=== PATIENT | female | born 1965 | race Caucasian/White ===

== ENCOUNTER 2018-02-03 23:14 | Inpatient (IN) | payer BC, OTHER ==
[2018-02-03 23:15] VITALS: BMI 24.7
[2018-02-03] MEDS ORDERED: Aspirin 325 mg EC Tablets PO STA (23:37)
--- NOTE | 2018-02-03 23:37 | C.PDOC ---
History Of Present Illness Pt presents with sudden onset of chest pain. Initially she had some abdominal pain, which subsided, then developed left sided chest pain. Speaking in complete sentences. No f/c/n/v. tolerating po., Pain is non radiating Time Seen by Provider: 02/03/18 23:36 Chief Complaint (Nursing): Chest Pain History Per: Patient History/Exam Limitations: no limitations Onset/Duration Of Symptoms: Hrs Current Symptoms Are (Timing): Better Context: Other Severity: Moderate Pain Scale Rating Of: 5 Quality: Aching, Tightness, Pressure Associated Symptoms: denies: Nausea Modifying Factors: None Alleviating Factors: None Recent travel outside of the [place]: No Additional History Per: Patient Past Medical History Reviewed: Historical Data, Nursing Documentation, Vital Signs Vital Signs: Last Vital Signs Temp 98.4 F 02/03/18 23:26 Pulse 76 02/04/18 00:05 Resp 16 02/04/18 00:05 BP 144/82 02/04/18 00:05 Pulse Ox 98 02/04/18 01:02 - Medical History PMH: HTN, Migraine Denies: Depression, Chronic Kidney Disease Surgical History: Appendectomy, Tonsillectomy - [facility] CONTRAST PHLEBOGRAM NEC (01/07/12) INJECT/INFUSE NEC (08/02/13) Family History: States: No Known Family Hx - Social History Hx Tobacco Use: No Hx Alcohol Use: No Hx Substance Use: No - Immunization History Hx Tetanus Toxoid Vaccination: No Hx Influenza Vaccination: Yes Hx Pneumococcal Vaccination: No Review Of Systems Constitutional: Negative for: Fever, Chills Eyes: Negative for: Vision Change ENT: Negative for: Throat Pain Cardiovascular: Positive for: Chest Pain Respiratory: Negative for: Shortness of Breath Gastrointestinal: Negative for: Nausea, Vomiting, Abdominal Pain Genitourinary: Negative for: Dysuria Musculoskeletal: Negative for: Back Pain Skin: Negative for: Rash Neurological: Negative for: Weakness Psych: Negative for: Anxiety Physical Exam - Physical Exam Appears: Non-toxic Skin: Warm, Dry Head: Normacephalic Eye(s): bilateral: Normal Inspection Oral Mucosa: Moist Neck: Trachea Midline, Supple Chest: Symmetrical Cardiovascular: Rhythm Regular Respiratory: No Rales, No Rhonchi, No Wheezing Gastrointestinal/Abdominal: Soft, No Tenderness, No Distention Back: Normal Inspection Extremity: Normal ROM Extremity: Bilateral: Atraumatic Pulses: Left Dorsalis Pedis: Normal, Right Dorsalis Pedis: Normal Neurological/Psych: Oriented x3, Normal Speech, Normal Cognition Gait: Steady ED Course And Treatment - Laboratory Results Result Diagrams: 02/03/18 23:53 02/03/18 23:53 ECG: Interpreted By Me, Viewed By Me ECG Rhythm: Sinus Rhythm (76), Nonspecific Changes O2 Sat by Pulse Oximetry: 98 Pulse Ox Interpretation: Normal - Radiology CXR: Interpreted by Me, Viewed By Me CXR Interpretation: No: Infiltrates, Fracture, Pnemothorax Progress Note: 12:55AM pt has chest pain again. 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 started midepigastric and radiating into her chest, described as pressure, not burning, repeat ekg. 1:04 AM nsr 81 bpm, rbbb, nsstt changes, unchanged from previous Disposition Discussed With .: Abiola Christian Comment: Accepted the pt on his service and took over the care at 1AM Doctor Will See Patient In The: Hospital Counseled Patient/Family Regarding: Studies Performed, Diagnosis - Disposition Referrals: Abiola Christian MD [Primary Care Provider] - Disposition: HOSPITALIZED Disposition Time: 01:02 Condition: FAIR Forms: [facility] ([place]icaraguan) - POA Present On Arrival: None - Clinical Impression Clinical Impression: Chest pain Decision To Admit - Pt Status Changed To: Hospital Disposition Of: Inpatient - Admit Certification Admit to Inpatient:: After my assessment, the patient will require hospitalization for at least two midnights. This is because of the severity of symptoms shown, intensity of services needed, and/or the medical risk in this patient being treated as an outpatient. - InPatient: Physician Admission Certification: I certify that this patient requires 2 or more midnights of care for the following reason:: After my assessment, the patient will require hospitalization for at least two midnights. This is because of the severity of symptoms shown, intensity of services needed, and/or the medical risk in this patient being treated as an outpatient. - . Bed Request Type: Telemetry Admitting Physician: Abiola Christian Patient Diagnosis: Chest pain
[2018-02-03 23:58] LABS: BASO # 0.1 K/uL (0.0-0.2); BASO % 1.7 % (0.0-2.0); EOS # 0.1 K/uL (0.0-0.7); EOS % 1.1 % (0.0-4.0); HEMOGLOBIN 11.7 g/dL (11.0-16.0); LYMPH # 3.5 K/uL (1.0-4.3); LYMPH % 44.5 % (20.0-40.0); MEAN CELL VOLUME 95.5 fL (81.0-99.0); MEAN CORPUSCULAR HGB CONC 33.5 g/dL (33.0-37.0); MONO # 1.1 K/uL (0.0-0.8); MONO % 13.4 % (0.0-10.0); NEUT # 3.1 K/uL (1.8-7.0); NEUT % 39.3 % (50.0-75.0); NRBC % 0.1 % (0.0-2.0); RBC 3.66 Mil/uL (3.80-5.20); RED CELL DISTRIBUTION WIDTH 14.2 % (11.5-14.5); WHITE BLOOD COUNT 7.8 K/uL (4.8-10.8)
[2018-02-04 00:11] LABS: D DIMER < 200 ng/mlDDU (0-243); INR 0.9; PARTIAL THROMBOPLASTIN TIME 26 SECONDS (21-34); PROTHROMBIN TIME 10.2 SECONDS (9.7-12.2)
[2018-02-04 00:14] LABS: ALT/SGPT 36 U/L (9-52); AST/SGOT 43 U/L (14-36); BLOOD UREA NITROGEN 10 mg/dL (7-17); CALCIUM 8.9 mg/dl (8.6-10.4); GFR AFRICAN-AMERICAN > 60; GFR NON-AFRICAN AMERICAN > 60
[2018-02-04] MEDS ORDERED: Morphine 4 MG/ML VIAL ONE (01:10)
[2018-02-04 02:37] LABS: SQUAMOUS EPITHIAL < 1 /hpf (0-5); URINE BILIRUBIN NEGATIVE (NEGATIVE); URINE BLOOD NEGATIVE (NEGATIVE); URINE CLARITY Clear (Clear); URINE COLOR Yellow (YELLOW); URINE GLUCOSE (UA) NORMAL (Normal); URINE LEUKOCYTE ESTERASE NEG Leu/uL (Negative); URINE PROTEIN NEGATIVE (NEGATIVE); URINE UROBILINOGEN NORMAL mg/dL (0.2-1.0)
--- NOTE | 2018-02-04 06:49 | RAD ---
Chest x-ray single frontal view History: Chest pain. Comparison: 09/24/2012 Findings: Mild venous congestion. Right hilar prominence. Surgical clip projects over the lateral right adan thorax. Calcification at the aortic knob. Degenerative changes in the spine. Impression: Mild venous congestion. Right hilar prominence. Surgical clip projects over the lateral right adan thorax. Calcification at the aortic knob.
[2018-02-04 08:15] LABS: CK-MB 0.46 ng/mL (0.0-3.38)
--- NOTE | 2018-02-04 09:39 | CP.PCM.PN ---
Subjective - Date & Time of Evaluation Date of Evaluation: 02/04/18 Time of Evaluation: 10:10 - Subjective Subjective: PGY 2 Medicine Progress Note- Dr. Christian's service 52 year old female with past medical history significant for Lupus, HTN, IGT, Herniated disks, thoracic outlet syndrome and migraines presents with complaints of chest pain which started last night. Patient states that she was sitting at rest when the symptoms began. At the time, she told her , who decided to bring her to the ER. Patient states that the symptoms resolved after being in the ER approximately 40 minutes. At the moment, patient complains of persistent headaches. Patient denied nausea , vomiting, changes in bowel movements at this time. PMHx- as stated above PSHx: Thoracic outlet surgery-removal of first rib on right, lymph node resection, splenectomy, appendectomy, section, tubal ligation, umbilical hernia repair, breast reduction Family Hx: Father, nephew, and 1 more unknown family member with Brain Aneurysms Social: Denies tobacco, alcohol or drug use. Meds- Fioricet, Tizanidine, Gabapentin, Vicodin PRN, Losartan Allergies: NKDA Objective - Vital Signs/Intake and Output Vital Signs (last 24 hours): Temp Pulse Resp BP Pulse Ox 98 F 66 20 118/70 97 02/04/18 08:28 02/04/18 08:28 02/04/18 08:28 02/04/18 08:28 02/04/18 08:28 - Labs Labs: 02/03/18 23:53 02/03/18 23:53 PT 10.2 SECONDS (9.7-12.2) 02/03/18 23:53 INR 0.9 02/03/18 23:53 APTT 26 SECONDS (21-34) 02/03/18 23:53 - Constitutional Appears: Non-toxic, No Acute Distress - Head Exam Head Exam: ATRAUMATIC, NORMAL INSPECTION, NORMOCEPHALIC - Eye Exam Eye Exam: EOMI, Normal appearance, PERRL Pupil Exam: NORMAL ACCOMODATION, PERRL - ENT Exam ENT Exam: Mucous Membranes Moist - Neck Exam Neck Exam: Full ROM - Respiratory Exam Respiratory Exam: NORMAL BREATHING PATTERN. absent: Wheezes - Cardiovascular Exam Cardiovascular Exam: REGULAR RHYTHM, +S1, +S2 - GI/Abdominal Exam GI & Abdominal Exam: Soft, Normal Bowel Sounds - Extremities Exam Extremities Exam: Full ROM, Normal Capillary Refill, Normal Inspection. absent : Pedal Edema, Tenderness - Back Exam Back Exam: Full ROM - Neurological Exam Neurological Exam: Alert, Awake, Oriented x3 - Psychiatric Exam Psychiatric exam: Normal Affect, Normal Mood - Skin Skin Exam: Dry, Normal Color, Warm Assessment and Plan (1) Chest pain Assessment & Plan: APRIL x3 negative Echo from 2017 shows EF of 55%. Trace to mild tricuspid regurgitation. EKG NSR with stable HR F/U Repeat Echo F/U Hgb A 1c, Lipid Panel and Thyroid studies Eyeglass Frames Inspector, Dr. Vaca consulted- F/U results Status: Acute (2) Hypertension Assessment & Plan: On Losartan 50 mg daily Started Norvasc 5 mg PO daily Status: Chronic (3) IGT (impaired glucose tolerance) Assessment & Plan: Hgb A1c is 6.2 as of April 2017 F/U Hgb a1c Status: Acute (4) Headache Assessment & Plan: Unclear Etiology Tension vs Cluster vs Migraine Patient takes Fioricet PRN Encourage fluid hydration Oxygen PRN Status: Acute (5) Prophylactic measure Assessment & Plan: SCDs Lovenox SC daily GI Prophylaxis not currently indicated. Status: Acute
[2018-02-04] MEDS ORDERED: Apap-Butalbital-Caffeine 325-50-40mg Tab PO STA (10:24)
[2018-02-04] MEDS ORDERED: Oxycodone/Acetaminophen 5/325 mg Tab ONE (14:19)
[2018-02-04] MEDS: Oxycodone/Acetaminophen 5/325 mg Tab PO PRN ×2 (14:19→21:02)
[2018-02-04 15:48] VITALS: RESP 20
[2018-02-04 16:01] LABS: CK-MB 0.45 ng/mL (0.0-3.38)
--- NOTE | 2018-02-04 21:18 | CARD ---
APPROVED REPORT EKG Measurement Heart [id number] <Conclusion> Poor data quality, interpretation may be adversely affected Normal sinus rhythm Normal ECG
[2018-02-05 01:03] VITALS: O2SAT 97
[2018-02-05] MEDS: Oxycodone/Acetaminophen 5/325 mg Tab PO PRN (05:06)
[2018-02-05 07:40] LABS: BASO # 0.1 K/uL (0.0-0.2); BASO % 1.7 % (0.0-2.0); EOS # 0.1 K/uL (0.0-0.7); EOS % 2.5 % (0.0-4.0); HEMOGLOBIN 11.8 g/dL (11.0-16.0); LYMPH # 2.7 K/uL (1.0-4.3); LYMPH % 50.2 % (20.0-40.0); MEAN CELL VOLUME 95.5 fL (81.0-99.0); MEAN CORPUSCULAR HEMOGLOBIN 32.9 pg (27.0-31.0); MEAN CORPUSCULAR HGB CONC 34.4 g/dL (33.0-37.0); MEAN PLATELET VOLUME 9.2 fL (7.2-11.7); MONO # 0.6 K/uL (0.0-0.8); MONO % 10.7 % (0.0-10.0); NEUT # 1.9 K/uL (1.8-7.0); NEUT % 34.9 % (50.0-75.0); NRBC % 0.1 % (0.0-2.0); RBC 3.6 Mil/uL (3.80-5.20); WHITE BLOOD COUNT 5.3 K/uL (4.8-10.8)
[2018-02-05 08:03] LABS: ALBUMIN 3.6 g/dL (3.5-5.0); ALT/SGPT 27 U/L (9-52); AST/SGOT 33 U/L (14-36); BLOOD UREA NITROGEN 11 mg/dL (7-17); CALCIUM 8.7 mg/dl (8.6-10.4); GFR AFRICAN-AMERICAN > 60; GFR NON-AFRICAN AMERICAN > 60; HDL CHOLESTEROL 55 mg/dL (30-70)
[2018-02-05 08:09] VITALS: TEMP 98
[2018-02-05 08:12] LABS: LDL CHOLESTEROL 65 mg/dL (0-129)
--- NOTE | 2018-02-05 09:12 | CP.PCM.CON ---
<Marquez Patiño - Last Filed: 02/05/18 14:47> History of Present Illness - History of Present Illness History of Present Illness: PGY-[address] Vaca's Cardiology Service: Patient is a 52 year old female with past medical history significant for Lupus , HTN, IGT, Orthostatic Hypotension, Herniated disks, thoracic outlet syndrome and migraines presents with complaints of chest pain which started last night. Patient states that she was sitting "watching television" when pt felt initial stomach "gas pain." After 5 mins the stomach pain went away and was replaced with "sharp/stabbing" midsternal CP that "was like being punched in the chest," which did not radiate. Severity index: 10/10 at worst. CP not worsened with position or exertion. No SOB or diaphoresis. Patient initially went to [facility] but after being told of wait-time in ED pt decided to come to [facility] ED. States that chest pain resolved after being in [facility] ED. No NTG given in ED, only Reglan. Denies fever, chills, cough, SOB, abd pain, N/V, or sick contacts. Pt admits seeing outpatient cardio Dr. Odom for syncopal workup last year. Diagnosed with orthostatic hypotension. Last stress test in 2009 for chest pain , exertional dyspnea. Results were "normal" per pt. Has images of home BP readings of 170/117, and 150/105 saved on her phone. Pt states she takes BP couple of times per day, and those readings are the "highest she has recorded." Notes recent uptrend in BP readings. Pt seen and examined at bedside. Nursing reports no acute events overnight. Patient denies chest pain, palpitations, SOB overnight. Pt for ECHO this AM. PMHx- as stated above PSHx: Thoracic outlet surgery-removal of first rib on right, lymph node resection, splenectomy, appendectomy, section, tubal ligation, umbilical hernia repair, breast reduction Family Hx: Father, nephew, and 1 more unknown family member with Brain Aneurysms Social: Denies tobacco, alcohol or drug use. Meds- Fioricet, Tizanidine, Gabapentin, Vicodin PRN, Losartan Allergies: NKDA OPDX Returned Case Inspector: DR. Odom Review of Systems - Constitutional Constitutional: absent: Chills, Fever - EENT Eyes: absent: Change in Vision - Cardiovascular Cardiovascular: absent: Chest Pain, Dyspnea - Respiratory Respiratory: absent: Cough - Gastrointestinal Gastrointestinal: absent: Abdominal Pain, Nausea, Vomiting - Genitourinary Genitourinary: absent: Dysuria - Musculoskeletal Musculoskeletal: absent: Numbness, Tingling - Neurological Neurological: absent: Tingling, Weakness Past Patient History - Infectious Disease Hx of Infectious Diseases: None - Tetanus Immunizations Tetanus Immunization: Unknown - Past Medical History & Family History Past Medical History?: Yes - Past Social History Smoking Status: Never Smoked - CARDIAC Hx Cardiac Disorders: Yes Hx Hypertension: Yes - PULMONARY Hx Respiratory Disorders: No - NEUROLOGICAL Hx Neurological Disorder: Yes Hx Migraine: Yes - HEENT Hx HEENT Problems: No - RENAL Hx Chronic Kidney Disease: No - ENDOCRINE/METABOLIC Hx Endocrine Disorders: No - HEMATOLOGICAL/ONCOLOGICAL Hx Blood Disorders: No - INTEGUMENTARY Hx Dermatological Problems: No - MUSCULOSKELETAL/RHEUMATOLOGICAL Hx Falls: Yes - GASTROINTESTINAL Hx Gastrointestinal Disorders: No - GENITOURINARY/GYNECOLOGICAL Hx Genitourinary Disorders: No - PSYCHIATRIC Hx Substance Use: No - SURGICAL HISTORY Hx Surgeries: Yes Hx Appendectomy: Yes Hx Tonsillectomy: Yes Other/Comment: rt thoracic OUTLET syndrome w/ surgery - ANESTHESIA Hx Anesthesia: Yes Hx Anesthesia Reactions: No Hx Malignant Hyperthermia: No Meds Home Medications: Home Medication List Medication Instructions Recorded Confirmed Type Acetaminophen/Butalbital/Caf 1 tab PO DAILY PRN #30 tab 02/05/18 Rx [Fioricet] Gabapentin [Neurontin] 600 mg PO TID #90 tab 02/05/18 Rx Losartan [Cozaar] 25 mg PO DAILY #30 tab 02/05/18 Rx amLODIPine [Norvasc] 5 mg PO DAILY #30 tab 02/05/18 Rx Allergies/Adverse Reactions: Allergies Allergy/AdvReac Type Severity Reaction Status Date / Time No Known Allergies Allergy Verified 02/03/18 23:25 - Medications Medications: Current Medications Acetaminophen (Tylenol 325mg Tab) 650 mg PO Q6 PRN PRN Reason: Headache Last Admin: 02/04/18 13:40 Dose: 650 mg Amlodipine Besylate (Norvasc) 5 mg PO DAILY [facility] Last Admin: 02/04/18 14:20 Dose: 5 mg Enoxaparin Sodium (Lovenox) 30 mg SC DAILY [facility] Gabapentin (Neurontin) 600 mg PO TID [facility] Last Admin: 02/04/18 18:15 Dose: 600 mg Losartan Potassium (Cozaar) 50 mg PO DAILY [facility] Last Admin: 02/04/18 13:40 Dose: 50 mg Oxycodone/Acetaminophen (Percocet 5/325 Mg Tab) 1 tab PO Q4H PRN PRN Reason: pain Stop: 02/07/18 14:12 Last Admin: 02/05/18 05:06 Dose: 1 tab Physical Exam - Constitutional Appears: Non-toxic, No Acute Distress - Head Exam Head Exam: ATRAUMATIC, NORMAL INSPECTION - Eye Exam Eye Exam: EOMI. absent: Scleral icterus Pupil Exam: PERRL - ENT Exam ENT Exam: Mucous Membranes Moist - Respiratory Exam Respiratory Exam: Clear to Auscultation Bilateral, NORMAL BREATHING PATTERN. absent: Chest Wall Tenderness, Rhonchi, Wheezes - Cardiovascular Exam Cardiovascular Exam: REGULAR RHYTHM, +S1, +S2 Additional comments: tattoos noted - GI/Abdominal Exam GI & Abdominal Exam: Normal Bowel Sounds, Soft. absent: Tenderness - Extremities Exam Extremities exam: Positive for: normal inspection. Negative for: pedal edema, tenderness - Back Exam Back exam: absent: CVA tenderness (L), CVA tenderness (R) - Neurological Exam Neurological exam: Alert, CN II-XII Intact, Oriented x3 - Psychiatric Exam Psychiatric exam: Normal Affect, Normal Mood - Skin Skin Exam: Normal Color, Warm Results - Vital Signs Recent Vital Signs: Last Vital Signs Temp 98.0 F 02/05/18 08:07 Pulse 81 02/05/18 08:07 Resp 20 02/05/18 08:07 BP 100/66 02/05/18 08:07 Pulse Ox 97 02/05/18 08:07 - Labs Result Diagrams: 02/05/18 07:27 02/05/18 07:27 Labs: Laboratory Results - last 24 hr 02/04/18 02/05/18 02/05/18 15:22 07:27 07:27 WBC 5.3 RBC 3.60 L Hgb 11.8 Hct 34.3 MCV 95.5 MCH 32.9 H MCHC 34.4 RDW 14.0 Plt Count 251 MPV 9.2 Neut % (Auto) 34.9 L Lymph % (Auto) 50.2 H Sac % (Auto) 10.7 H Eos % (Auto) 2.5 Baso % (Auto) 1.7 Neut # (Auto) 1.9 Lymph # (Auto) 2.7 Sac # (Auto) 0.6 Eos # (Auto) 0.1 Baso # (Auto) 0.1 Sodium 144 Potassium 3.9 Chloride 105 Carbon Dioxide 29 Anion Gap 14 BUN 11 Creatinine 0.6 L Est GFR ( Amer) > 60 Est GFR (Non-Af Amer) > 60 Random Glucose 95 Calcium 8.7 Phosphorus 4.3 Magnesium 2.0 Total Bilirubin 0.3 AST 33 ALT 27 Alkaline Phosphatase 77 Total Creatine Kinase 47 CK-MB (Mass) 0.45 Troponin I < 0.0120 Total Protein 7.1 Albumin 3.6 Globulin 3.6 Albumin/Globulin Ratio 1.0 Triglycerides 140 Cholesterol 169 LDL Cholesterol Direct 65 HDL Cholesterol 55 TSH 3rd Generation 1.33 Assessment & Plan - Assessment and Plan (Free Text) Plan: Chest pain Observe on tele CAD risk factors: HTN, SLE, EKG NSR, HR 74, No axis deviation, No ST/T wave changes, APRIL x3 negative CXR (02/05/18): Mild venous congestion. Right hilar prominence. Calcification of aortic knob. Degenerative changes in spine. Echo from 2017 shows EF of 55%. Trace to mild tricuspid regurgitation. - F/U Repeat Echo f/u Hgb A1c Lipid Panel: LDL 65, HDL 55, T chol 169, TG 140 Thyroid studies TSH 1.33 Hypertension Elevated on admission, but better control today Losartan 50 mg daily Norvasc 5 mg PO daily IGT (impaired glucose tolerance) Hgb A1c is 6.2 as of April 2017 F/U Hgb a1c Disposition: ECHO negative. F/u with Dr. Christian. Losartan 25 daily, Norvasc 5mg Daily. Marquez Patiño PGY2 D/w Dr. Vaca <Andreas Vaca - Last Filed: 02/05/18 15:36> Results - Vital Signs Recent Vital Signs: Last Vital Signs Temp 98.0 F 02/05/18 08:07 Pulse 94 H 02/05/18 14:22 Resp 20 02/05/18 08:07 BP 150/98 H 02/05/18 14:22 Pulse Ox 97 02/05/18 08:07 - Labs Result Diagrams: 02/05/18 07:27 02/05/18 07:27 Labs: Laboratory Results - last 24 hr 02/04/18 02/05/18 02/05/18 15:22 07:27 07:27 WBC 5.3 RBC 3.60 L Hgb 11.8 Hct 34.3 MCV 95.5 MCH 32.9 H MCHC 34.4 RDW 14.0 Plt Count 251 MPV 9.2 Neut % (Auto) 34.9 L Lymph % (Auto) 50.2 H Sac % (Auto) 10.7 H Eos % (Auto) 2.5 Baso % (Auto) 1.7 Neut # (Auto) 1.9 Lymph # (Auto) 2.7 Sac # (Auto) 0.6 Eos # (Auto) 0.1 Baso # (Auto) 0.1 Sodium 144 Potassium 3.9 Chloride 105 Carbon Dioxide 29 Anion Gap 14 BUN 11 Creatinine 0.6 L Est GFR ( Amer) > 60 Est GFR (Non-Af Amer) > 60 Random Glucose 95 Calcium 8.7 Phosphorus 4.3 Magnesium 2.0 Total Bilirubin 0.3 AST 33 ALT 27 Alkaline Phosphatase 77 Total Creatine Kinase 47 CK-MB (Mass) 0.45 Troponin I < 0.0120 Total Protein 7.1 Albumin 3.6 Globulin 3.6 Albumin/Globulin Ratio 1.0 Triglycerides 140 Cholesterol 169 LDL Cholesterol Direct 65 HDL Cholesterol 55 TSH 3rd Generation 1.33 Assessment & Plan - Assessment and Plan (Free Text) Plan: Plan of care d/w the medical director and as documented
[2018-02-05] MEDS ORDERED: Enoxaparin 30 mg Syringe SC SCH (10:00)
--- NOTE | 2018-02-05 13:58 | CP.PCM.PN ---
Subjective - Date & Time of Evaluation Date of Evaluation: 02/05/18 Time of Evaluation: 13:56 - Subjective Subjective: PT CLEARED FOR D/C PER DR. PRATT AND DR. MEDINA TODAY. I CLARIFIED BP MEDS WITH DR. PRATT, AND HE IS RECOMMENDING AMLODIPINE 5 MG PO DAILY AND LOSARTAN 25 MG PO DAILY; RX GIVEN. REFILL RX FOR HOME MEDS ALSO GIVEN. PT EDUCATED ON HOW TO TAKE BP MEDS AND ON RECORDING BP READINGS. PT TO F/U WITH DR. PRATT AND DR. MEDINA IN THEIR OFFICES WITHIN 1-2 WEEKS. NO FURTHER ORDERS. -FOLLOW UP WITH DR. MEDINA IN THE OFFICE WITHIN 1 WEEK---CALL THE OFFICE TO MAKE YOUR APPT. -FOLLOW UP WITH DR. PRATT (MAINTENANCE HELPER UTILITY ENGINEER) IN THE OFFICE WITHIN 2-3 WEEKS---CALL THE OFFICE TO MAKE YOUR APPT. -CONTINUE SAME MEDICATIONS USUAL AT HOME. -NEW MEDICATIONS/DOSAGES INCLUDE: AMLODIPINE 5 MG (1 TABLET) ONCE A DAY (START TOMORROW, Wednesday02/06/18); LOSARTAN 25 MG (1 TABLET) ONCE A DAY (START TOMORROW , Wednesday). -YOU DO NOT HAVE TO TAKE YOUR BLOOD PRESSURES PILLS TOGETHER; YOU CAN TAKE ONE IN THE MORNING AND ONE DURING THE EVENING. -MAKE SURE YOU RECORD YOUR BLOOD PRESSURE READINGS AND BRING THEM TO DR. PRATT'S OFFICE. YOUR BLOOD PRESSURE MEDICATION REGIMEN MAY CHANGE BASED ON YOUR DAILY READINGS. -IF YOU HAVE ANY FURTHER QUESTIONS OR CONCERNS, FEEL FREE TO CONTACT DR. MEDINA OR DR. PRATT'S OFFICE. Objective - Vital Signs/Intake and Output Vital Signs (last 24 hours): Temp Pulse Resp BP Pulse Ox 98.0 F 91 H 20 100/66 97 02/05/18 08:07 02/05/18 12:43 02/05/18 08:07 02/05/18 08:07 02/05/18 08:07 Intake and Output: 02/05/18 02/05/18 06:59 18:59 Intake Total 360 Balance 360 - Medications Medications: Current Medications Acetaminophen (Tylenol 325mg Tab) 650 mg PO Q6 PRN PRN Reason: Headache Last Admin: 02/04/18 13:40 Dose: 650 mg Amlodipine Besylate (Norvasc) 5 mg PO DAILY [facility] Last Admin: 02/05/18 10:31 Dose: 5 mg Enoxaparin Sodium (Lovenox) 30 mg SC DAILY [facility] Last Admin: 02/05/18 10:31 Dose: Not Given Gabapentin (Neurontin) 600 mg PO TID [facility] Last Admin: 02/05/18 10:31 Dose: 600 mg Losartan Potassium (Cozaar) 50 mg PO DAILY [facility] Last Admin: 02/05/18 10:31 Dose: 50 mg Oxycodone/Acetaminophen (Percocet 5/325 Mg Tab) 1 tab PO Q4H PRN PRN Reason: pain Stop: 02/07/18 14:12 Last Admin: 02/05/18 05:06 Dose: 1 tab - Labs Labs: 02/05/18 07:27 02/05/18 07:27 PT 10.2 SECONDS (9.7-12.2) 02/03/18 23:53 INR 0.9 02/03/18 23:53 APTT 26 SECONDS (21-34) 02/03/18 23:53
[2018-02-05 14:22] VITALS: BP 150/98; PULSE 94
--- NOTE | 2018-02-05 19:20 | CARD ---
APPROVED REPORT EXAM: Two-dimensional and M-mode echocardiogram with Doppler and color Doppler. Other Information Quality : GoodRhythm : INDICATION Chest Pain Syncope RISK FACTORS Hypertension 2D DIMENSIONS IVSd1.3 (0.7-1.1cm)Aortic Root (2D)3.4 (2.0-3.7cm) LVDd3.3 (3.9-5.9cm)PWd1.3 (0.7-1.1cm) LVDs2.4 (2.5-4.0cm)FS (%) 28.0 % LVEF (%)55.5 (>50%) Mitral Valve MV E Smltqvqy82.9cm/sMV A Vjrwpway415.4cm/sE/A ratio0.6 TDI E/Lateral E'0.0E/Medial E'0.0 Tricuspid Valve TR Peak Unprnoev633qx/sTR Peak Gr.[id number] LEFT VENTRICLE The left ventricle is normal size. There is normal left ventricular wall thickness. The left ventricular function is normal. The left ventricular ejection fraction is within the normal range. There is normal LV segmental wall motion. Transmitral Doppler flow pattern is abnormal. RIGHT VENTRICLE The right ventricle is normal size. ATRIA The left atrium size is normal. The right atrium size is normal. AORTIC VALVE The aortic valve is normal in structure. MITRAL VALVE The mitral valve is normal in structure. TRICUSPID VALVE There is moderate tricuspid regurgitation. <Conclusion> Normal LV systolic function. Diastolic dysfunction. Moderate TR. Normal chamber size.
--- NOTE | 2018-02-05 20:32 | CARD ---
APPROVED REPORT EKG Measurement Heart [id number] [place] [id number] <Conclusion> Normal sinus rhythm Normal ECG
--- NOTE | 2018-02-05 20:34 | CARD ---
APPROVED REPORT EKG Measurement Heart [id number] [place] 152P41 [id number] <Conclusion> Normal sinus rhythm Incomplete right bundle branch block Borderline ECG
--- NOTE | 2018-02-07 11:11 | HP ---
HISTORY OF PRESENT ILLNESS: Ms. Martino is 52-year-old female, admitted to the hospital with chief complaint of chest pain retrosternal, headaches, neck pain. The patient came to the ER. Blood pressure is elevated. The patient has hypertension with severe migraine headache, herniated disks, . MEDICATIONS: Losartan, ____ gabapentin. PHYSICAL EXAMINATION: GENERAL: The patient is awake, alert, and oriented. VITAL SIGNS: Temperature 98 and pulse 90. HEENT: Within normal limits. NECK: Supple. CHEST: Symmetrical. HEART: Regular. ABDOMEN: Soft. EXTREMITIES: No edema. IMPRESSION: The patient suffers from acute coronary syndrome. The patient bed rest, cardiac enzymes, Cardiology evaluation. Abiola Christian MD
== END 2018-02-05 14:22 | disposition home or self-care (01) | DRG 313 ==
LOC: SUPCPDRO 23:14 → C.ER 23:14 → C.9E 02-04 00:59 → C.6T 02-04 13:13
PROVIDERS: ADMIT Internal Medicine Pulmonary Disease; ATTEND Internal Medicine Pulmonary Disease
DX: R07.89 Other chest pain (principal); I10 Essential (primary) hypertension; M32.9 Systemic lupus erythematosus, unspecified; R73.09 Other abnormal glucose; G54.0 Brachial plexus disorders; Z90.81 Acquired absence of spleen; Z90.49 Acquired absence of other specified parts of digestive tract